=== PATIENT | male | born 1985 | race African-American/Black ===

== ENCOUNTER 2023-03-24 14:31 | Emergency (ER) | payer SELFPAY ==
[~2023-03-24] VITALS: Ht 172.7 cm; Wt 103.4 kg
[2023-03-24] MEDS ORDERED: ACETAMINOPHEN 325 MG TAB PO ONE ×2 (15:30→16:30)
[2023-03-24] MEDS ORDERED: LACTATED RINGER'S 1,000 ML INJ ONE (15:30)
[2023-03-24 15:33] LABS: BASOPHILS % 0.3 % (0.0-1.0); EOSINOPHILS % 0.3 % (0.0-6.0); HEMOGLOBIN 13.6 g/dL (14.0-18.0); LYMPHOCYTES # (AUTO) 1.8 (1.0-3.2); MEAN CORPUSCULAR HEMOGLOBIN 28.5 pg (28-32); MEAN CORPUSCULAR HGB CONC 34.9 g/dL (31-35); MEAN CORPUSCULAR VOLUME 81.8 fL (81-99); MONOCYTES # (AUTO) 0.8 (0.2-0.8); MONOCYTES % 12.3 % (4.4-11.3); NEUTROPHILS # (AUTO) 3.8 (2.1-6.9); NEUTROPHILS % 58.9 % (38.7-80.0); PLATELET COUNT 209 x10e3/uL (140-360); RED BLOOD COUNT 4.77 x10e6/uL (4.3-5.7); RED CELL DISTRIBUTION WIDTH 12.7 % (11.7-14.4); WHITE BLOOD COUNT 6.49 x10e3/uL (4.8-10.8)
[2023-03-24 15:52] LABS: ALBUMIN 3.6 g/dL (3.5-5.0); ALBUMIN/GLOBULIN RATIO 0.9 (0.8-2.0); ANION GAP 15.9 mmol/L (8-16); CALCIUM 9.2 mg/dL (8.4-10.2); CREATININE, SERUM 1.48 mg/dL (0.72-1.25); POTASSIUM 3.9 mmol/L (3.5-5.1)
[2023-03-24 16:13] LABS: CLARITY,URINE CLEAR (CLEAR); COLOR,URINE YELLOW (YELLOW); KETONES,URINE 2+ (NEGATIVE); LEUKOCYTE ESTERASE ,URINE NEGATIVE (NEGATIVE); NITRITE,URINE NEGATIVE (NEGATIVE); PROTEIN,URINE DIPSTICK >=300 (NEGATIVE); URINE UROBILINOGEN 1 mg/dL (0.2 - 1)
[2023-03-24 16:27] LABS: BACTERIA,URINE FEW /HPF; EPITHELIAL CELLS,URINE FEW /LPF; RBC,URINE 0-5 /HPF (0-5); WBC,URINE (MAN) 0-5 /HPF (0-5)
[2023-03-24] MEDS ORDERED: LACTATED RINGER'S 1,000 ML ONE (16:29)
[2023-03-24] MEDS ORDERED: LACTATED RINGER'S 1,000 ML IV ONE (17:15)
[2023-03-24] MEDS ORDERED: AZITHROMYCIN250 MG PO (17:24)
[2023-03-24] MEDS ORDERED: IBUPROFEN 600 MG TAB PO STA (17:27)
[2023-03-24 17:51] VITALS: BP 112/63; PULSE 97; RESP 18; TEMP 100; O2SAT 100
== END 2023-03-24 18:03 | disposition home or self-care (01) ==
LOC: ER 14:48
DX: R50.9 Fever, unspecified (principal); E86.0 Dehydration
CPT/HCPCS: 36415; 80053; 81001; 83605; 85025; 87040; 99283; J2543; J7121